=== PATIENT | male | born 1970 | race Caucasian/White ===

== ENCOUNTER 2021-05-24 11:21 | Outpatient (RCR) | payer BC, SELFPAY ==
[2021-05-24] MEDS: ACETAMINOPHEN 325 MG TABLET 650 MG PO (14:05)
[2021-05-24] MEDS: diphenhydrAMINE HCl CAP 25 MG CAPSULE PO (14:05)
[2021-05-24] MEDS: FAMOTIDINE 20 MG TABLET PO (14:05)
[2021-05-24 14:34] VITALS: BP 100/74; PULSE 72; RESP 20; TEMP 37.2; O2SAT 99
[2021-05-24 15:40] VITALS: BP 124/82
--- NOTE | 2021-05-25 10:07 | PC.NURSE ---
Called Mr Patel, and he stated he is feeling better just very tired. He has no other questions at this time.
== END 2021-05-24 17:00 ==
LOC: AMCINF 11:21
PROVIDERS: PCP Nurse Practitioner; Visit Provider Internal Medicine Hematology & Oncology
DX: U07.1 COVID-19 (principal)
CPT/HCPCS: A9270; M0245; Q0245

== ENCOUNTER 2021-08-31 14:46 | Outpatient (CLI) | payer BC, SELFPAY ==
--- NOTE | ~2021-08-31 | XR_ITS ---
EXAMINATION: XR ankle RT 2V EXAM DATE: 08/31/2021 15:07 INDICATION: M79.671 - Pain in right foot. TECHNIQUE: Frontal and lateral projections of the right ankle. Correlation is made to right foot exa m same date. FINDINGS: Small right calcaneal inferior spur. The ankle mortise appears intact. There are no acute fractures or dislocations identified. There is no subcutaneous gas. The soft tissue is unremarkable . There are no radiopaque foreign bodies. IMPRESSION: Small right calcaneal spur. Reviewed, dictated and finalized at location . IMPRESSION: Small right calcaneal spur.
--- NOTE | ~2021-08-31 | XR_ITS ---
EXAMINATION: XR foot RT 2V EXAM DATE: 08/31/2021 15:07 INDICATION: M79.671 - Pain in right foot TECHNIQUE: Frontal and lateral projections of the right foot There is no prior study for compariso n. FINDINGS: Small left calcaneal inferior spur. There are no acute fractures or dislocations identifie d. There is no subcutaneous gas. The soft tissue is unremarkable. There are no radiopaque foreign bodies. IMPRESSION: Small left calcaneal spur. Reviewed, dictated and finalized at location G. IMPRESSION: Small left calcaneal spur.
== END 2021-08-31 14:47 | disposition home or self-care (01) ==
LOC: ANHIMG 14:50
PROVIDERS: PCP Nurse Practitioner; Visit Provider Nurse Practitioner
DX: M77.31 Calcaneal spur, right foot (principal); M77.32 Calcaneal spur, left foot
CPT/HCPCS: 73600; 73620

== ENCOUNTER 2023-02-26 10:03 | Outpatient (CLI) | payer BC, SELFPAY ==
--- NOTE | 2023-02-26 10:16 | EST_ITS ---
Patient Info Name: Garcia Patel Age: 52 years : 1970 Gender: Male Ht: 73 in Wt: 255 lbs BSA: 2.48 m2 Exam Date: 02/26/2023 10:28 AM Exam Location: [facility] Stress Patient Status: Outpatient Admit Date: 02/26/2023 Staff Ordering Physician: Julius Fitch APRN Attending Provider: Julius Fitch APRN Exercise Technologist: Rachelle Weir RDCS Exercise Physician: Kiet Zaragoza DO Exam Type: CA stress test treadmill Study Info Indications R07.9 - Chest pain, unspecified A treadmill exercise stress test was performed. Summary 1. 1. Negative Donnie exercise stress test for ischemic ST changes by ECG criteria. 2. 2. Good functional capacity, achieving 12 METs of workload. 3. 3. Appropriate HR response to exercise. 4. 4. Appropriate HR recovery at 1 minute post exercise. 5. 5. No imaging with stress testing. 6. 6. Patient informed of the above results. Protocol: Donnie Stress ECG Details Stage: REST Duration (min): 0 min : 47 sec Speed (mph): 0.0 Grade (%): 0 HR (bpm): 51 SBP (mmHg): 118 DBP (mmHg): 73 METS: --- Stage: REST Duration (min): 11 min : 51 sec Speed (mph): 0.0 Grade (%): 0 HR (bpm): 92 SBP (mmHg): 118 DBP (mmHg): 73 METS: --- Stage: STAGE 1 Duration (min): 1 min : 0 sec Speed (mph): 1.7 Grade (%): 10 HR (bpm): 83 SBP (mmHg): 118 DBP (mmHg): 73 METS: --- Stage: STAGE 1 Duration (min): 2 min : 0 sec Speed (mph): 1.7 Grade (%): 10 HR (bpm): 92 SBP (mmHg): 118 DBP (mmHg): 73 METS: --- Stage: STAGE 1 Duration (min): 3 min : 0 sec Speed (mph): 1.7 Grade (%): 10 HR (bpm): 90 SBP (mmHg): 140 DBP (mmHg): 69 METS: --- Stage: STAGE 2 Duration (min): 1 min : 0 sec Speed (mph): 2.5 Grade (%): 12 HR (bpm): 100 SBP (mmHg): 140 DBP (mmHg): 69 METS: --- Stage: STAGE 2 Duration (min): 2 min : 0 sec Speed (mph): 2.5 Grade (%): 12 HR (bpm): 104 SBP (mmHg): 163 DBP (mmHg): 89 METS: --- Stage: STAGE 2 Duration (min): 3 min : 0 sec Speed (mph): 2.5 Grade (%): 12 HR (bpm): 109 SBP (mmHg): 163 DBP (mmHg): 89 METS: --- Stage: STAGE 3 Duration (min): 1 min : 0 sec Speed (mph): 3.4 Grade (%): 14 HR (bpm): 132 SBP (mmHg): 163 DBP (mmHg): 89 METS: --- Stage: STAGE 3 Duration (min): 2 min : 0 sec Speed (mph): 3.4 Grade (%): 14 HR (bpm): 141 SBP (mmHg): 182 DBP (mmHg): 58 METS: --- Stage: STAGE 3 Duration (min): 3 min : 0 sec Speed (mph): 3.4 Grade (%): 14 HR (bpm): 143 SBP (mmHg): 177 DBP (mmHg): 63 METS: --- Stage: STAGE 4 Duration (min): 1 min : 0 sec Speed (mph): 4.2 Grade (%): 16 HR (bpm): 160 SBP (mmHg): 177 DBP (mmHg): 63 METS: --- Stage: STAGE 4 Duration (min): 1 min : 0 sec Speed (mph): 4.2 Grade (%): 16 HR (bpm): 160 SBP (mmHg): 177 DBP (mmHg): 63 METS: --- Stage: RECOVERY
== END 2023-02-26 10:04 | disposition home or self-care (01) ==
PROVIDERS: PCP Nurse Practitioner; Visit Provider Nurse Practitioner
DX: R07.9 Chest pain, unspecified (principal)
CPT/HCPCS: 93017

== ENCOUNTER 2023-07-26 07:01 | Outpatient (CLI) | payer BC, SELFPAY ==
--- NOTE | ~2023-07-26 | XR_ITS ---
EXAMINATION: XR abdomen/kub 1V DATE: 07/26/2023 07:20 INDICATION: Hematuria, unspecified. TECHNIQUE: A supine view of the abdomen on 2 radiographs was obtained. COMPARISON: Pelvis radiograph 07/24/2007 FINDINGS: There are no dilated loops of bowel. There is a moderate volume of stool in the colon. Agai n seen is a phlebolith in right pelvis. There is a 2 mm calcification in left pelvis. IMPRESSION: 1. 2 mm calcification in left pelvis, which may be a phlebolith or distal left ureteral stone. Reviewed, dictated and finalized at location A. AGE CANNER
== END 2023-07-26 07:02 | disposition home or self-care (01) ==
LOC: ANHIMG 07:03
PROVIDERS: PCP Nurse Practitioner; Visit Provider Nurse Practitioner
DX: R31.9 Hematuria, unspecified (principal)
CPT/HCPCS: 74018

== ENCOUNTER 2023-10-11 07:09 | Outpatient (CLI) | payer BC, SELFPAY ==
--- NOTE | ~2023-10-11 | XR_ITS ---
Supine and upright views of the abdomen Clinical history: Kidney stone COMPARISON: 07/26/2023 Findings: Bowel gas pattern is nonspecific. No evidence for obstruction or free air. Stable presumed pelvic phleboliths. No renal stone evident otherwise. Osseous structures are intact. Impression: No significant abnormality is seen. Stable presumed pelvic phleboliths. Reviewed, dictated and finalized at [facility]. Impression: No significant abnormality is seen. Stable presumed pelvic phleboliths.
== END 2023-10-11 07:10 | disposition home or self-care (01) ==
PROVIDERS: PCP Nurse Practitioner; Visit Provider Urology
DX: N20.1 Calculus of ureter (principal)
CPT/HCPCS: 74018

== ENCOUNTER 2024-03-03 11:13 | Outpatient (CLI) | payer BC, SELFPAY ==
--- NOTE | 2024-03-12 11:47 | WPDHOLTEREM ---
Holter/Event Monitor Holter/Event Monitor Date of procedure: 03/03/24 Holter/Event Procedure: 48 Hr Holter Monitor Indications: Shortness of breath Conclusion: 1. 48 hour holter monitor on 03/03/24. 2. Underlying rhythm is sinus rhythm. HR range 37-121 bpm; average HR 63 bpm. HR at 37 bpm was at 04:57. HR at 121 bpm was at 15:00. 3. There are 30 premature supraventricular complexes and 11 supraventricular couplets. No supraventricular tachycardia. 4. There are 2,942 premature ventricular complexes, 55 ventricular couplets, 464 ventricular bigeminy and 3 ventricular trigeminy. No ventricular tachycardia. 5. No sinoatrial or atrioventricular blocks. No significant pauses greater than 2 seconds. 6. Patient reports symptoms of fast heart beat and little pain which demonstrate sinus rhythm, HR range 47-98 bpm with 1 episode with PVC.
== END 2024-03-03 11:14 | disposition home or self-care (01) ==
LOC: ANHCARD 11:16
PROVIDERS: PCP Nurse Practitioner; Visit Provider Nurse Practitioner
DX: I49.9 Cardiac arrhythmia, unspecified (principal)
CPT/HCPCS: 93225; 93226

== ENCOUNTER 2024-11-11 08:06 | Outpatient (CLI) | payer BC, SELFPAY ==
--- OUTSIDE RECORDS SUMMARY | 2024-11-11 08:10 | XMS_ITS | Encounter Summary ---
Author Organization [employer] Address 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
--- OUTSIDE RECORDS SUMMARY | 2024-11-11 08:10 | XMS_ITS | Clinical Summary ---
Author Organization [facility] [address] Address [address] [facility] [place] [address] Care Team Providers Care Railroad Car Painter Name Role Phone Julius Fitch NP Primary Care Provider [phone] Allergies No known active allergies Medications multivitamin capsule Take 1 capsule by mouth daily Active cetirizine (ZyrTEC) 10 mg tablet Take 1 tablet (10 mg total) by mouth daily Active Active Problems Problem Noted Date Diagnosed Date Sore throat 10/03/2022 Assessment & Plan (10/03/2022 9:08 PM CDT): His sore throats symptoms seem to have improved following the medication that was prescribed. I reassured him that his throat generally looks okay. I recommended observation. Hoarseness 10/03/2022 Assessment & Plan (10/03/2022 9:09 PM CDT): I also reassured him that his vocal cords look fine. I do not see any evidence of recurrence of his lesions that were removed years ago. I think that things are going to continue to improve. They already have. I am recommending no further intervention but would like to see him back if his problems continue. Surgical History Surgery Date Site/Laterality Comments OTHER SURGICAL HISTORY vocal cord nodules Medical History Medical History Date Comments Allergic rhinitis Vocal cord nodules Sore throat Family History Medical History Relation Name Comments No Known Problems Father No Known Problems Mother Relation Name Status Comments Father Mother Social History Tobacco Use Types Packs/Day Years Used Date Smoking Tobacco: Never Smokeless Tobacco: Never Tobacco Cessation:Counseling Given: Not Answered Personal Safety Answer Date Recorded Getting School Help Needed Not on file 08/24 Sex and Gender Information Value Date Recorded Sex Assigned at Not on file 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 Gender Identity Not on file Sexual Orientation Not on file Obstetrics History Last Filed Vital Signs Vital Sign Reading Time Taken Comments Blood Pressure - - Pulse - - Temperature - - Respiratory Rate 18 10/03/2022 2:32 PM CDT Oxygen Saturation - - Inhaled Oxygen Concentration - - Weight 112.5 kg (248 lb) 10/03/2022 2:32 PM CDT Height 185.4 cm (6' 1) 10/03/2022 2:32 PM CDT Body Mass Index 32.72 10/03/2022 2:32 PM CDT Plan of Treatment Health Maintenance Due Date Last Done Comments Depression Screening 1970 Hepatitis C Screening 1970 Prostate Cancer Screening-PSA 1970 Hepatitis B Screening 11/20/1989 Regular Well Visit/Exam 18-64 11/20/1989 DTaP/Tdap/Td Vaccine (2 - Td or Tdap) 06/24/2018 06/24/2008 Zoster Vaccine (1 of 2) 11/20/2021 Influenza Vaccine (Season Ended) 2025 Colon Cancer Screening-Colonoscopy 07/25/20272017 Pneumococcal vaccine <65 Aged Out No longer eligible based on patient's age to complete this topic Procedures Procedure Name Priority Date/Time Associated Diagnosis Comments COLONOSCOPY REPORT 07/25/2017 from Last 3 Months or Most Recently Relevant to Health Maintenance Results * COLONOSCOPY REPORT (07/25/2017) Anatomical Region Laterality Modality Other us Provider Scanning GI PROCEDURE ORDERABLES Final Result from Last 3 Months or Most Recently Relevant to Health Maintenance Insurance [employer] [place] Care Teams Railroad Car Painter Relationship Specialty Start Date End Date Julius Fitch NP [address] [place] [address] PCP - General Nurse Practitioner 09/18/22
--- OUTSIDE RECORDS SUMMARY | 2024-11-11 08:10 | XMS_ITS | Referral Summary ---
Author Organization [facility] 2 Address [address] [facility] [place] [address] Care Team Providers Care Retinal Surgeon Name Role Phone Julius Fitch NP Primary Care Provider [phone] Allergies No known active allergies Medications multivitamin [...] see him back if his problems continue. 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 Gender Identity Not on file Sexual Orientation Not on file Last Filed Vital Signs Vital Sign Reading [...] 10/03/2022 2:32 PM CDT Plan of Treatment Not on file Procedures Procedure Name Priority Date/Time Associated Diagnosis Comments COLONOSCOPY REPORT 07/25/2017 from Last 3 Months or Most Recently Relevant to Health Maintenance Results * COLONOSCOPY REPORT (07/25/2017) Anatomical Region Laterality Modality Other us Provider Scanning GI PROCEDURE ORDERABLES Final Result from Last 3 Months or Most Recently Relevant to Health Maintenance Insurance [employer] P[place] [address] [id number] Care Teams Retinal Surgeon Relationship Specialty Start Date End Date Julius Fitch, LINN [address] [facility] [address] [address] PCP - General Nurse Practitioner 09/18/22
--- OUTSIDE RECORDS SUMMARY | 2024-11-11 08:10 | XMS_ITS | Clinical Summary ---
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
[2024-12-01 13:59] VITALS: BMI 33.3
--- NOTE | 2024-12-01 13:59 | WPDHOMESLEEP ---
Sleep Study - Home Unattended Date of Study: 11/11/24 Ordering Provider: Kiet Zaragoza DO Interpreting Provider: Kae Choi DO Home Sleep Study Type: Watch PAT Height: 1.85 m Weight: 114.759 kg Body Mass Index: 33.3 Neck Circumference (inches): 17 [place]: 6 Reason for Sleep Study snoring, heart palpitations Sleep History The patient is a 54-year-old male that had a sleep study ordered by his ice puller for evaluation of sleep apnea. The patient frequently awakens from sleep short of breath. He denies awakening at night with heartburn, belching or cough. He frequently snores and is frequently loud enough that others complain. He occasionally has trouble sleeping when he has a cold. He frequently wakes up gasping for air throughout the night. He rarely has breathing problems at night observed by himself or others. He occasionally sweats excessively at night. He constantly has heart palpitations or irregular heartbeats during the night. He rarely falls asleep during the day and rarely while driving. He rarely experiences loss of muscle tone when extremely emotional. He denies having trouble at school or work due to sleepiness. He denies having sleep paralysis. He rarely experiences vivid dreamlike scenes upon awakening or falling asleep. He denies feeling afraid of going to sleep. He denies having nightmares. He occasionally remembers his dreams. He frequently has thoughts racing through his mind. He occasionally feels sad, depressed and anxious. He frequently has muscular tension. He occasionally notices parts of his body jerk. He rarely kicks during the night. He rarely has crawling and aching feelings in his legs and rarely has leg pain during the night. He occasionally grinds his teeth during sleep but rarely awakens with morning jaw pain. He is rarely bothered by pain during the day and rarely awakened by pain during the night. He occasionally wakes up feeling stiff in the morning. He occasionally wakes up with sore or achy muscles. He frequently wakes up with pain in the neck, spine and other joints. He goes to bed at 9:15 p.m. on weekdays and between 9:30-10 p.m. on the weekends. It takes him 2 minutes to fall asleep. He wakes up several times throughout the night for unknown reasons and the amount of time it takes for him to fall back asleep is variable. He wakes up at 5:30 a.m. on weekdays and at 6:00 a.m. on the weekends. He typically gets 7.5 hours of sleep per night. He will stay in bed for 10 minutes after waking up in the morning. He currently lives with his and 2 children. He denies consuming any caffeinated beverages within 2 hours of bedtime. He will read before falling asleep. He denies watching television before falling asleep. He will occasionally take naps in the afternoon or the evening and they are refreshing. He will consume caffeinated green tea throughout the day. He denies tobacco, alcohol and recreational drug use. [facility] Surgical History Surgical History History of laryngoplasty 2007 History of appendectomy 1997 Family History Family History Mother Heart disease Father Hypertension Grandparent Carcinoma of colon Social History Social History Social History: caffeine-tea Smoking status: Never smoker Alcohol intake: never Substance use: never Substance use type: does not use Lack of Transportation: No Lack of Food: Never True Current Housing: I Have Housing Concerned About Future Housing: No Difficulty Paying Gas/Electric Bills: No Difficulty Paying for Meds: No Currently Unemployed: No Education: Master's Degree or Higher Difficulty w/ Childcare or Family Care: No Spiritual care concerns: No Medications Home Medications ?Medication ?Instructions ?Recorded ?Confirmed ?Type multivitamin 1 tablet PO DAILY 09/13/22 10/06/24 History vitamin C 60 mg-zinc gluconate 5 alise PO .daily 09/13/22 10/06/24 History mg-elderberry fruit 12.5 mg lozenges (Sambucus Elderberry (zinc gluconate)) cetirizine 10 mg capsule (Zyrtec) 10 mg PO DAILY PRN 10/06/24 10/06/24 History Sleep Procedure The sleep study was completed using [employer] a technically adequate device with seven channels: peripheral arterial tone, actigraphy, body position, snore, respiratory movement, pulse oximetry, sleep staging, and heart rate. Prior to using the device, the patient received verbal and written instructions for its application and was provided with the help desk phone number for additional telephonic instruction with 24-hour availability of qualified personnel to answer questions. The study was scored using [facility] guidelines. Sleep Architecture The total recording time is 9 hrs, 22 min. The total sleep time is 7 hrs, 42 min. Sleep latency is 17 minutes. REM latency is 66 minutes. The patient had 10 episodes of waking. Sleep architecture shows 19.5% deep sleep, 55.2% light sleep, and (as % Total Sleep Time) showed NREM (Light 55.2%; Deep 19.5%), and a 25.3% stage REM. The patient spent 3.4% of total sleep time in the supine position. Sleep efficiency was 82.21. Respiratory Analysis The overall AHI (pAHI 4%:) is 1.1. The overall AHI (pAHI 3%:) is 4.9. The central AHI is 1.9. The AHI was 3.2 in NREM and 9.8 in REM sleep. The AHI was 8.0 in Supine and 4.8 in Non-supine sleep. Percent of Paulie Dye respirations is 0.0. Oximetry Data The oxygen desaturation index (ANDRÉS 4%:) is 1.4. The mean saturation is 94%, and the lowest saturation is 91%. Time spent with saturation < 88% is 0.0 minutes. Snoring Profile Snoring average intensity is 40 dB. The patient snored above 45 decibels for 10.4 minutes, 2.3% of sleep time. Cardiac Profile The average pulse rate is 55 beats per minutes. The lowest pulse rate is 43 bpm. The highest pulse rate reported is 104 bpm. Atrial fibrillation was not detected. Premature beats occur 0.1 per minute. Assessment and Plan Assessment and Plan (1) Sleep disturbances: Code(s): G47.9 - Sleep disorder, unspecified Status: Acute Assessment and Plan: The patient had an overall AHI of 1.1 with desaturation down to 91%. This is not consistent with sleep disordered breathing. If there is further concern for a sleep disorder, I recommend the patient have a split study with the use of a hypnotic to ensure we obtain enough sleep data. Data The data obtained during this sleep study is adequate for interpretation. Certification This sleep study has been reviewed by a board certified sleep medicine physician.
== END 2024-11-12 12:45 | disposition home or self-care (01) ==
LOC: ANHCSM 08:07
PROVIDERS: PCP Nurse Practitioner; Visit Provider Internal Medicine Cardiovascular Disease
DX: G47.10 Hypersomnia, unspecified (principal); G47.9 Sleep disorder, unspecified
CPT/HCPCS: 95800